=== PATIENT | male | born 1990 | race Caucasian/White ===

== ENCOUNTER 2020-06-15 14:03 | Emergency (ER) | payer MEDICAID, OTHER ==
[~2020-06-15] VITALS: Ht 175.3 cm; Wt 68.0 kg
[2020-06-15] MEDS: VANCOMYCIN IV 1,000 MG in IV DEXTROSE 5% 250 ML IV ONE (14:30)
[2020-06-15] MEDS ORDERED: ONDANSETRON 4 MG/2 ML VIAL ONE (14:35)
[2020-06-15] MEDS ORDERED: HYDROMORPHONE 2 MG/1 ML DISP.SYRIN ONE ×2 (14:35→15:40)
[2020-06-15] MEDS: IV NORMAL SALINE 1000 ML BAG IV ONE ×2 (15:04→16:06)
[2020-06-15] MEDS: HYDROMORPHONE 1 MG/1 ML DISP.SYRIN IV ONE ×2 (15:04→15:38)
[2020-06-15] MEDS: ONDANSETRON 4 MG/2 ML VIAL IV ONE (15:04)
[2020-06-15] MEDS: PIPERACILLIN SODIUM/TAZOBACTAM 3.375 G in IV DEXTROSE 5% 50 ML IV ONE (15:07)
[2020-06-15] MEDS ORDERED: PIPERACILLIN/TAZOBACTAM/D5W 50 ML IV ONE (15:11)
[2020-06-15] MEDS ORDERED: VANCOMYCIN IV 200 ML ONE (15:11)
[2020-06-15 15:12] LABS: BASOPHILS % (AUTO) 0.2 % (0.0-2.0); EOSINOPHILS % (AUTO) 0.1 % (0.0-7.0); HEMATOCRIT 48.7 % (36.7-47.1); HEMOGLOBIN 16.5 g/dL (12.5-16.3); LYMPHOCYTES # (AUTO) 2.4 K/uL (20.0-40.0); LYMPHOCYTES % (AUTO) 14.3 % (20.5-51.5); MEAN CORPUSCULAR HEMOGLOBIN 29.8 uug (23.8-33.4); MEAN CORPUSCULAR HGB CONC 34 g/dL (32.5-36.3); MONOCYTES # (AUTO) 1.5 K/uL (2.0-10.0); NEUTROPHILS # (AUTO) 12.6 K/uL (1.8-8.9); NEUTROPHILS % (AUTO) 76.4 % (38.5-71.5); PLATELET COUNT (AUTO) 212 K/uL (152-348); RED BLOOD CELL COUNT(AUTO) 5.53 MIL/uL (4.06-5.63); WHITE BLOOD COUNT (AUTO) 16.4 K/uL (3.6-10.2)
--- NOTE | 2020-06-15 15:28 | NUR ---
pt requesting more pain med, but refuses cammy at this time, says cammy does not work on him. Addendum: 06/15/20 at 1612 by CHERYL pt requesting ketamine, says only ketamine relives the pain.
[2020-06-15 15:38] LABS: CREATININE 0.8 mg/dL (0.6-1.3); POTASSIUM 3.6 mmol/L (3.5-5.1)
--- NOTE | 2020-06-15 15:38 | NUR ---
pt agreed to dialudid
[2020-06-15 15:44] LABS: BILIRUBIN,DIRECT 0.1 mg/dL (0.0-0.2); BILIRUBIN,TOTAL 0.5 mg/dL (0.2-1.0); TOTAL PROTEIN, SERUM 7.6 g/dL (6.4-8.2)
[2020-06-15] MEDS: KETAMINE HCL 500 MG/10 ML INJ IV ONE (15:59)
--- NOTE | 2020-06-15 15:59 | NUR ---
ketamin 70 mg iv given per md order.
[2020-06-15] MEDS ORDERED: KETAMINE HCL 500 MG/10 ML INJ ONE (16:00)
--- NOTE | 2020-06-15 16:04 | NUR ---
pt hr increased to 130s. md notified. Addendum: 06/15/20 at 1607 by CHERYL pt dencarlos albertos any cp, sob.
--- NOTE | 2020-06-15 16:21 | NUR ---
PT AGREED TO LE X-RAY.
--- NOTE | 2020-06-15 16:30 | NUR ---
dr. calix admitted the pt to m/s
--- NOTE | 2020-06-15 16:32 | NUR ---
HR DOWN TO 94, PT AWAKE, PT SAYS THE PAIN IS "A LITTLE BIT BETTER".
--- NOTE | 2020-06-15 17:10 | NUR ---
dressed the rle wound with bactroban, 4x4 and wrapped.
[2020-06-15] MEDS ORDERED: MUPIROCIN 2% OINT 22 GM TUBE ONE (17:31)
[2020-06-15] MEDS: MUPIROCIN 2% OINT 22 GM TUBE TP SCH (17:36)
--- NOTE | 2020-06-15 17:36 | NUR ---
Patient does not wish to proceed with medical care recommended by Dr. israel). Patient given information related to possible complications, up to and including , which could occur as a result of leaving the hospital at this time. Patient verbalizes understanding of risks involved due to leaving against medical advice. Patient has signed AMA form. Addendum: 06/15/20 at 1738 by CHERYL pt said that he has to take care of his place.
[2020-06-15] MEDS ORDERED: ONDANSETRON 4 MG/2 ML VIAL IV PRN (18:30)
[2020-06-15] MEDS ORDERED: ACETAMINOPHEN 325 MG TABLET PO PRN (18:30)
[2020-06-15] MEDS ORDERED: MORPHINE SULFATE 2 MG/1 ML DISP.SYRIN IV PRN (18:30)
[2020-06-15] MEDS ORDERED: POTASSIUM CHLORIDE 20 MEQ in IV 1/2NS 1000 ML 1,000 ML IV SCH (19:00)
[2020-06-15] MEDS ORDERED: PIPERACILLIN SODIUM/TAZOBACTAM 3.375 G in IV DEXTROSE 5% 50 ML IV SCH (22:00)
[2020-06-16] MEDS ORDERED: PANTOPRAZOLE SODIUM 40 MG TABLET.DR PO SCH (07:00)
== END 2020-06-15 17:43 | disposition left against medical advice (07) ==
LOC: ER 14:03 → UNDOADMIN 17:16 → MEDSURG3 17:16
DX: L03.115 Cellulitis of right lower limb (principal); S91.331S Puncture wound without foreign body, right foot, sequela; L97.519 Non-pressure chronic ulcer of other part of right foot with unspecified severity; X78.8XXS Intentional self-harm by other sharp object, sequela; Z20.822 Contact with and (suspected) exposure to COVID-19; Z59.0 Homelessness; F11.10 Opioid abuse, uncomplicated
CPT/HCPCS: 36415; 71045; 73590; 73630; 80048; 80076; 83605; 83690; 84484; 85025; 85730; 87040; 87426; 93005; 96365; 96366; 96368; 96375; 96376; 99285; J1170 ×2; J2405; J2543; J3370; J3490; U0003; 70030-TC; A4663; J3480; J7030

== ENCOUNTER 2020-06-20 00:01 | Inpatient (IN) | payer OTHER ==
[~2020-06-20] VITALS: Ht 182.9 cm; Wt 97.5 kg
--- NOTE | 2020-06-20 00:28 | NUR ---
Patient arived at the ER with c/o RLE swelling, redness and pain.
--- NOTE | 2020-06-20 00:54 | NUR ---
Dr. Daley at bedside for MSE.
[2020-06-20] MEDS ORDERED: VANCOMYCIN 1G/D5W 200 ML PIGGYBACK IV ONE (01:00)
[2020-06-20] MEDS ORDERED: SODIUM BICARBONATE 4.2 % (NEUT) 5 ML VIAL TP ONE (01:15)
[2020-06-20] MEDS ORDERED: ONDANSETRON 4 MG/2 ML VIAL IV ONE (01:15)
[2020-06-20] MEDS ORDERED: HYDROMORPHONE 1 MG/1 ML DISP.SYRIN IV ONE ×3 (01:15→02:30)
[2020-06-20] MEDS ORDERED: LIDOCAINE 1%-EPI 1:100,000 20 ML VIAL IJ ONE (01:15)
[2020-06-20] MEDS ORDERED: LIDOCAINE 1%-EPI 1:100,000 20 ML VIAL ONE (01:23)
[2020-06-20] MEDS ORDERED: ONDANSETRON 4 MG/2 ML VIAL ONE (01:23)
[2020-06-20] MEDS ORDERED: SODIUM BICARBONATE 4.2 % (NEUT) 5 ML VIAL ONE (01:23)
[2020-06-20] MEDS ORDERED: HYDROMORPHONE 1 MG/1 ML DISP.SYRIN ONE (01:23)
[2020-06-20] MEDS ORDERED: VANCOMYCIN IV 200 ML ONE (01:23)
[2020-06-20] MEDS ORDERED: HYDROMORPHONE 2 MG/1 ML DISP.SYRIN ONE ×3 (01:24→02:22)
[2020-06-20 01:51] LABS: BILIRUBIN,DIRECT 0.2 mg/dL (0.0-0.2); BILIRUBIN,TOTAL 0.6 mg/dL (0.2-1.0); CREATININE 0.9 mg/dL (0.6-1.3); TOTAL PROTEIN, SERUM 7.7 g/dL (6.4-8.2)
[2020-06-20] MEDS ORDERED: LORAZEPAM 2 MG/1 ML VIAL ONE (02:26)
[2020-06-20] MEDS ORDERED: LORAZEPAM 2 MG/1 ML VIAL IV ONE (02:30)
--- NOTE | 2020-06-20 02:59 | NUR ---
Called [facility] to page Dr. Rebolledo.
--- NOTE | 2020-06-20 03:00 | NUR ---
Wounds on right LE cleanse with saline, pat dry and cover with 4x4 gauze and wrap with Kerlix as ordered by Dr Daley.
--- NOTE | 2020-06-20 03:05 | NUR ---
Dr. Daley on panel call with Dr. Rebolledo.
[2020-06-20 03:16] LABS: BASOPHILS % (AUTO) 0.2 % (0.0-2.0); EOSINOPHILS # (AUTO) 0.1 K/uL (0.0-0.7); EOSINOPHILS % (AUTO) 0.3 % (0.0-7.0); HEMOGLOBIN 15.8 g/dL (12.5-16.3); LYMPHOCYTES # (AUTO) 2.6 K/uL (20.0-40.0); LYMPHOCYTES % (AUTO) 14.5 % (20.5-51.5); MEAN CORPUSCULAR HEMOGLOBIN 30.2 uug (23.8-33.4); MEAN CORPUSCULAR HGB CONC 34 g/dL (32.5-36.3); MEAN CORPUSCULAR VOLUME 87.9 fL (73.0-96.2); MONOCYTES # (AUTO) 1.2 K/uL (2.0-10.0); MONOCYTES % (AUTO) 6.9 % (0.0-11.0); NEUTROPHILS % (AUTO) 78.1 % (38.5-71.5); PLATELET COUNT (AUTO) 277 K/uL (152-348); RED BLOOD CELL COUNT(AUTO) 5.23 MIL/uL (4.06-5.63); WHITE BLOOD COUNT (AUTO) 17.9 K/uL (3.6-10.2)
--- NOTE | 2020-06-20 03:22 | NUR ---
Belongings list done together with security advisor/Parker to check for contarband.
[2020-06-20] MEDS ORDERED: ONDANSETRON 4 MG/2 ML VIAL IV PRN (03:30)
[2020-06-20] MEDS ORDERED: MAGNESIUM HYDROXIDE 30 ML LIQUID UDC PO PRN (03:30)
[2020-06-20] MEDS ORDERED: Z GUARD REMEDY PASTE 57 GM TUBE TOP PRN (03:30)
[2020-06-20] MEDS ORDERED: ACETAMINOPHEN 325 MG TABLET PO PRN (03:30)
[2020-06-20] MEDS ORDERED: PIPERACILLIN SODIUM/TAZOBACTAM 3.375 G in IV DEXTROSE 5% 50 ML IV ONE ×2 (05:00→08:00)
--- NOTE | 2020-06-20 05:40 | NUR ---
Pt. admitted to Med/Surg unit, room 327, under care of Dr. Rebolledo. Report given to SATHISH Girard. Belongs List completed
--- NOTE | 2020-06-20 05:59 | NUR ---
admitted this 29 y.o. male from er via [facility], appears drowsy, no acute distress noted,has cellulitis of right lower extremity. g 20 on right upper arm patent and intact.oxygen inhalation at 2l/min via nc saturation 95.kept warm and comfortable.
[2020-06-20] MEDS ORDERED: PIPERACILLIN SODIUM/TAZOBACTAM 3.375 G in IV DEXTROSE 5% 50 ML IV SCH (06:00)
[2020-06-20 06:08] VITALS: BP 97/61
[2020-06-20] MEDS: HYDROCODONE/APAP 5-325MG TABLET PO PRN ×2 (08:54→14:12)
[2020-06-20] MEDS: VANCOMYCIN IV 1,250 MG in IV DEXTROSE 5% 250 ML IV SCH ×2 (09:04→17:07)
--- NOTE | 2020-06-20 09:23 | NUR ---
in bed sleeping vs are stable call light with in reach
[2020-06-20 11:37] VITALS: BP 105/55
[2020-06-20] MEDS: PIPERACILLIN SODIUM/TAZOBACTAM 3.37 G in IV DEXTROSE 5% 100 ML IV SCH ×2 (13:49→21:51)
[2020-06-20 15:17] VITALS: BP 109/59
[2020-06-20 20:23] VITALS: BP 102/50
[2020-06-20] MEDS: LORAZEPAM 1 MG TABLET PO PRN (22:06)
--- NOTE | 2020-06-20 23:00 | NUR ---
Pt received in bed, resting. Pt is on RA sating at 98%. Denies pain or SOB. C/o anxiety so Ativan PO 1mg was ordered for patient, tolerated medication well. Denies chest pain. Bed is locked and in lowest position. No other issues or concerns at this time.
[2020-06-21] MEDS: HYDROCODONE/APAP 5-325MG TABLET PO PRN ×2 (01:27→08:37)
[2020-06-21] MEDS: VANCOMYCIN IV 1,250 MG in IV DEXTROSE 5% 250 ML IV SCH (02:00)
--- NOTE | 2020-06-21 02:09 | NUR ---
Pt accidentally pulled out IV. Refuses another IV at this time. Was informed that medications are due and that an IV is necessary to give antibiotics to treat his cellulitis, patient still refused another IV at this time.
[2020-06-21 05:13] VITALS: BP 104/54
[2020-06-21] MEDS: PIPERACILLIN SODIUM/TAZOBACTAM 3.37 G in IV DEXTROSE 5% 100 ML IV SCH (05:15)
[2020-06-21] MEDS: LORAZEPAM 1 MG TABLET PO PRN (08:37)
--- NOTE | 2020-06-21 09:00 | NUR ---
pt is refusing to draw the blood and iv start made aware
[2020-06-21] MEDS ORDERED: levoFLOXacin 500 MG TABLET PO SCH (12:00)
--- NOTE | 2020-06-21 12:00 | NUR ---
pt took shower and decide to go ama and pt refusing the lab work and irish huitron md made aware and nursing transmission maintenance supervisor made aware pt took ama paper and sign it ,pt said he have to go he is feeling ok and he have to take care of some business
[2020-06-21 12:18] VITALS: BP 120/65
--- NOTE | 2020-06-21 12:30 | NUR ---
pt left the facility via walking from the hospital in proper clothing and took his antibiotic prescription. offer the food pt refused md made aware
[2020-06-21] MEDS ORDERED: CLINDAMYCIN PHOSPHATE IV 900 MG in IV DEXTROSE 5% 100 ML IV SCH (14:00)
== END 2020-06-21 12:30 | disposition left against medical advice (07) | DRG 383 ==
LOC: ER 00:02 → MEDSURG3 04:35
DX: L03.115 Cellulitis of right lower limb (principal); S81.801A Unspecified open wound, right lower leg, initial encounter; X58.XXXA Exposure to other specified factors, initial encounter; Y93.9 Activity, unspecified; Y92.89 Other specified places as the place of occurrence of the external cause; F11.20 Opioid dependence, uncomplicated; Z86.79 Personal history of other diseases of the circulatory system; Z20.822 Contact with and (suspected) exposure to COVID-19; Z59.0 Homelessness; F17.210 Nicotine dependence, cigarettes, uncomplicated
CPT/HCPCS: 36415; 73551; 73590; 73630; 85025; 85730; 87040; A4663; G0378; J1170; J2060; J2405; J2543; J3370; J3490; J7040; J7060